=== PATIENT | male | born 1965 | race Caucasian/White ===

== ENCOUNTER 2020-10-29 09:59 | Emergency (ER) | payer SELFPAY ==
[~2020-10-29] VITALS: Ht 177.8 cm; Wt 72.0 kg
[2020-10-29 10:02] VITALS: BP 176/98
[2020-10-29] MEDS ORDERED: haloperidol lactate 5mg/ml inj IM ONE (10:35)
[2020-10-29] MEDS ORDERED: diphenhydrAMINE 50 mg/ml inj IM ONE (10:35)
[2020-10-29] MEDS ORDERED: LORazepam 2 mg/ml vial IM ONE (10:35)
== END 2020-10-29 10:43 | disposition home or self-care (01) ==
LOC: ER 09:59
DX: R45.1 Restlessness and agitation (principal); F17.210 Nicotine dependence, cigarettes, uncomplicated; I10 Essential (primary) hypertension; Z88.2 Allergy status to sulfonamides; Z88.8 Allergy status to other drugs, medicaments and biological substances; Z59.0 Homelessness
CPT/HCPCS: 99283

== ENCOUNTER 2020-11-23 20:56 | Emergency (ER) | payer OTHER ==
[~2020-11-23] VITALS: Ht 177.8 cm; Wt 80.0 kg
[2020-11-23] MEDS ORDERED: normal saline 1000ML IV soln IVB ONE ×2 (22:35)
[2020-11-23 22:41] LABS: BASOPHILS % (AUTO) 0.1 % (0-1); EOSINOPHILS # (AUTO) 0.1 X10'3 (0-0.9); EOSINOPHILS % (AUTO) 1.3 % (0-6); HEMATOCRIT 52.1 % (42.0-52.0); LYMPHOCYTES % (AUTO) 37.7 % (21-51); MEAN CORPUSCULAR HEMOGLOBIN 31.2 PG (27.0-31.0); MEAN CORPUSCULAR HGB CONC 34.6 g/dL (33.0-36.5); MEAN PLATELET VOLUME 8.5 FL (7.4-10.4); MONOCYTES # (AUTO) 0.6 X10'3 (0-0.9); MONOCYTES % (AUTO) 11.5 % (2-12); NEUTROPHILS # (AUTO) 2.6 X10'3 (1.8-7.7); NEUTROPHILS % (AUTO) 49.4 % (42-75); PLATELET COUNT 324 X10'3 (140-440); RED BLOOD COUNT 5.79 X10'6 (4.70-6.10); RED CELL DISTRIBUTION WIDTH 13.2 % (11.5-14.5); WHITE BLOOD COUNT 5.3 X10'3 (4.5-11.0)
[2020-11-23 22:55] LABS: ALANINE AMINOTRANSFERASE 16 U/L (12-78); ALBUMIN 3.9 G/DL (3.4-5.0); ALKALINE PHOSPHATASE 80 IU/L (46-116); ANION GAP 10 (8-16); ASPARTATE AMINO TRANSFERASE 12 U/L (10-37); BILIRUBIN,TOTAL 0.5 MG/DL (0.1-1.0); BLOOD UREA NITROGEN 22 MG/DL (7-18); BUN/CREATININE RATIO 19.3 (5.4-32.0); CALCIUM 9.4 MG/DL (8.5-10.1); CHLORIDE 100 MMOL/L (99-107); CREATININE 1.14 MG/DL (0.60-1.10); GLUCOSE 255 MG/DL (70-104); LIPASE 58 U/L (73-393); MAGNESIUM 1.6 MG/DL (1.5-2.4); POTASSIUM 4.4 MMOL/L (3.5-5.1); SODIUM 134 MMOL/L (135-145); TOTAL CARBON DIOXIDE 24.2 MMOL/L (24-32); TOTAL PROTEIN 7.8 G/DL (6.4-8.2); eGFR 67 ML/MIN
[2020-11-23 23:09] LABS: CLARITY,URINE CLEAR (Clear); COLOR,URINE YELLOW (Yellow); GLUCOSE, URINE >=1000 mg/dl (Neg); KETONES,URINE TRACE mg/dl (Neg); LEUKOCYTE ESTERASE ,URINE NEGATIVE (Neg); NITRITES, URINE NEGATIVE (Neg); OCCULT BLOOD,URINE NEGATIVE (Neg); PH,URINE 5.5 (4.8-8.0); PROTEIN,URINE TRACE mg/dl (Neg); UROBILINOGEN,URINE 0.2 E.U/dL (0.2-1.0)
[2020-11-23 23:10] LABS: UA COLLECTION TYPE CLN CATCH MIDSTREAM
[2020-11-23 23:18] LABS: BACTERIA,URINE NONE SEEN /HPF (Neg); MUCUS STRANDS MANY /LPF (Neg); RBC,URINE NONE SEEN /HPF (0-2); SQUAMOUS EPITHELIAL CELL,UR FEW /LPF (FEW); WBC,URINE 0-4 /HPF (0-4)
[2020-11-23] MEDS ORDERED: LOPE2CAP PO (23:22)
[2020-11-23] MEDS ORDERED: ONDA4TAB6 PO (23:22)
--- NOTE | 2020-11-24 00:17 | NUR ---
IV FLUIDS INFUSING. PT TOLERATING PO FLUID
--- NOTE | 2020-11-24 00:49 | NUR ---
Note [place] in EDM - 11/24/20 at 0052 by [facility] 3 additional persons to assist to place urinary catheter. Patient screaming when touched or repositioned. Donis ARANGOcharge hand spoke Serbian to explain need for urine.
[2020-11-24 01:09] VITALS: BP 141/79
== END 2020-11-24 01:09 ==
LOC: EEVIPCON 20:57 → ER 20:57
DX: R11.2 Nausea with vomiting, unspecified (principal); R19.7 Diarrhea, unspecified; I10 Essential (primary) hypertension; Z59.0 Homelessness; Z88.2 Allergy status to sulfonamides; Z88.5 Allergy status to narcotic agent; Z79.899 Other long term (current) drug therapy
CPT/HCPCS: 36415; 80053; 81001; 83690; 83735; 85025; 96360; 96361; 99283; J7030